=== PATIENT | male | born 2000 | race Two or more races ===

== ENCOUNTER 2024-09-06 19:42 | Emergency (ER) | payer MEDICAID ==
[~2024-09-06] VITALS: Ht 165.1 cm; Wt 64.0 kg
[2024-09-06 20:43] LABS: AMPHET/METH SCREEN,URINE POSITIVE (NEGATIVE); BARBITURATE SCREEN, URINE NEGATIVE (NEGATIVE); BENZODIAZEPINES SCREEN,URINE NEGATIVE (NEGATIVE); CANNABINOID SCREEN,URINE NEGATIVE (NEGATIVE); COCAINE SCREEN,URINE NEGATIVE (NEGATIVE); METHADONE SCREEN, URINE NEGATIVE (NEGATIVE); OPIATE SCREEN,URINE NEGATIVE (NEGATIVE); PHENCYCLIDINE SCREEN,URINE NEGATIVE (NEGATIVE)
[2024-09-06 20:46] LABS: ALCOHOL, URINE DRUG SCREEN NEGATIVE (NEGATIVE)
[2024-09-06 21:07] LABS: SALICYLATE < 2.8 mg/dL (2.8-20.0)
[2024-09-06 21:32] LABS: ACETAMINOPHEN < 2 mcg/mL (10-30)
[2024-09-06] MEDS: LORazepam 2 MG TABLET PO ONE (23:23)
[2024-09-06 23:30] VITALS: BP 135/89; PULSE 100; RESP 18; TEMP 98.3; O2SAT 100
== END 2024-09-06 23:55 | disposition home or self-care (01) ==
LOC: EMS 19:42
DX: F41.9 Anxiety disorder, unspecified (principal); F19.10 Other psychoactive substance abuse, uncomplicated; I10 Essential (primary) hypertension
CPT/HCPCS: 99284; 36415; 93005; 80307; G0480; G0481